=== PATIENT | female | born 1940 | race African-American/Black ===

== ENCOUNTER 2017-07-05 14:35 | Inpatient (IN) | payer OTHER ==
[~2017-07-05] VITALS: Ht 154.9 cm; Wt 78.0 kg
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
[~2017-07-05 14:35] MED LIST: CLONAZEPAM 1 MG1 M1 PO; HALDOL PO; NORCO 5-325 TA1 EACH PO; SIMVASTATIN40 MG PO; SYNTHROID150 MCG PO; TRAZODONE 150150 MG PO; ZOFRAN ODT4 MG PO
[2017-07-05 14:36] VITALS: BP 121/84
[2017-07-05 15:26] LABS: ABSOLUTE NEUTROPHILS 5.9 thou/uL (1.4-8.2); BASOPHILS 0.6 % (0.0-2.0); EOSINOPHILS 0.2 % (0.0-3.0); HEMOGLOBIN 12.1 gm/dL (12.0-15.0); LYMPHOCYTES 23.4 % (24.0-44.0); MCH 27.6 pg (26.0-34.0); MCHC 33.6 g/dL (28.0-37.0); MONOCYTES 5.3 % (1.0-8.0); PLATELET COUNT 272 thou/uL (150-400); POLYS 70.5 % (36.0-66.0); RBC 4.39 mil/uL (4.20-5.00); RDW 17.3 % (10.5-14.5); WBC 8.4 thou/uL (4.0-11.0)
[2017-07-05 15:33] LABS: CREATININE 0.9 mg/dL (0.6-1.0); POTASSIUM 3.5 mmol/L (3.5-5.1)
[2017-07-05] MEDS ORDERED: SINGULAIR 10 MG10 M1 PO (15:33)
[2017-07-05] MEDS ORDERED: CYMBALTA30 MG PO (15:33)
[2017-07-05] MEDS ORDERED: KLONOPIN0.5 MG PO (15:33)
[2017-07-05] MEDS ORDERED: SYNTHROID50 MCG PO (15:33)
[2017-07-05] MEDS ORDERED: VRAYLAR1.5 MG PO (15:35)
[2017-07-05 15:55] LABS: URINE BILIRUBIN NEGATIVE (Negative); URINE BLOOD TRACE (Negative); URINE CLARITY CLEAR; URINE COLOR YELLOW; URINE GLUCOSE-RANDOM* NEGATIVE (Negative); URINE KETONES NEGATIVE (Negative); URINE LEUKOCYTES NEGATIVE (Negative); URINE NITRITE NEGATIVE (Negative); URINE PROTEIN (DIPSTICK) NEGATIVE (Negative)
[2017-07-05 16:54] VITALS: BP 160/76
[2017-07-05 18:15] VITALS: BP 152/78
[2017-07-05 20:00] VITALS: BP 138/72
[2017-07-06 04:14] VITALS: BP 141/86
[2017-07-06 07:37] VITALS: BP 122/66
[2017-07-06 13:50] VITALS: BP 122/66
[2017-07-06 16:21] VITALS: BP 137/74
[2017-07-06 19:24] VITALS: BP 130/68
[2017-07-07 03:04] VITALS: BP 122/75
[2017-07-07 09:13] VITALS: BP 148/72
[2017-12-21] MEDS ORDERED: ZOFRAN4 MG PO (21:54)
[2017-12-21] MEDS ORDERED: COMPAZINE10 MG PO (21:54)
[2017-12-23] MEDS ORDERED: DULOXETINE HCL30 MG PO (17:39)
[2017-12-23] MEDS ORDERED: TYLENOL325 MG PO (17:39)
[2017-12-23] MEDS ORDERED: MIRALAX17 GM PO (17:39)
[2017-12-23] MEDS ORDERED: SYNTHROID50 MCG PO (17:39)
[2017-12-23] MEDS ORDERED: QUETIAPINE FUM200 MG PO (17:39)
== END 2017-07-07 14:00 | disposition home health service (06) | DRG 93 ==
LOC: ER 14:35 → EROBS 16:45 → 4S 16:45
PROVIDERS: Nurse Practitioner
DX: G92 Toxic encephalopathy (principal); G43.909 Migraine, unspecified, not intractable, without status migrainosus; F31.9 Bipolar disorder, unspecified; F20.9 Schizophrenia, unspecified
CPT/HCPCS: 10195

== ENCOUNTER 2017-08-02 11:14 | Emergency (ER) | payer OTHER ==
[~2017-08-02] VITALS: Ht 154.9 cm; Wt 79.4 kg
--- NOTE | ~2017-08-02 | EKG ---
[place] [address] [facility] [place] [address] ELECTROCARDIOGRAM REPORT Name: SHNAAE BAUM [id number] Admission: 08/02/17 Attend Phys: Discharge: 08/02/17 Date of : 42 Report #: [id number] THIS REPORT FOR: //name// [facility] ED Test Date: 2017-08-02 Test Time: 12:12:08 Pat Name: SHANAE BAUM Department: Room: Gender: F Partridge Farmer: ABRAHAN : 1940 Requested By: Suri Diaz Order Number: [id number] MD: Omi Hay Measurements Intervals [place] Rate: 53 P: 56 IN: 149 QRS: -41 QRSD: 93 T: 6 QT: 463 QTc: 435 Interpretive Statements Sinus bradycardia Abnormal R-wave progression, early transition Left ventricular hypertrophy No previous ECG available for comparison Electronically Signed On 08-02-2017 19:28:16 CDT by Omi Hay [email or web address] <ELECTRONICALLY SIGNED> By: Omi Hay MD, [facility] 08/02/17 1928 1212 1212 Omi Hay MD, FACC /EPI
[~2017-08-02 11:14] MED LIST changes: +CYMBALTA30 MG PO; +KLONOPIN0.5 MG PO; +SINGULAIR 10 MG10 M1 PO; +SYNTHROID50 MCG PO; +VRAYLAR1.5 MG PO
[2017-08-02 13:10] LABS: ABSOLUTE NEUTROPHILS 2.5 thou/uL (1.4-8.2); BASOPHILS 0.6 % (0.0-2.0); EOSINOPHILS 1.5 % (0.0-3.0); HEMATOCRIT 35.1 % (37.0-47.0); HEMOGLOBIN 11.4 gm/dL (12.0-15.0); LYMPHOCYTES 37.6 % (24.0-44.0); MCHC 32.6 g/dL (28.0-37.0); MCV 82.7 fL (80.0-100.0); MONOCYTES 6.7 % (1.0-8.0); PLATELET COUNT 249 thou/uL (150-400); POLYS 53.6 % (36.0-66.0); RBC 4.24 mil/uL (4.20-5.00); RDW 17.9 % (10.5-14.5); WBC 4.7 thou/uL (4.0-11.0)
[2017-08-02 13:21] LABS: ANION GAP 6 mmol/L (7-16); BUN 9 mg/dL (7-18); CALCIUM 9.1 mg/dL (8.5-10.1); CHLORIDE 107 mmol/L (98-107); CO2 25 mmol/L (21-32); CREATININE 0.7 mg/dL (0.6-1.0); GLUCOSE 101 mg/dL (74-106); SODIUM 138 mmol/L (136-145)
[2017-08-02 13:29] LABS: ALBUMIN 3.1 g/dL (3.4-5.0); SGOT 24 U/L (15-37); SGPT 18 U/L (30-65); TOTAL BILIRUBIN 0.5 mg/dL (<0.1-1.0); TOTAL PROTEIN 7.1 g/dL (6.4-8.2); TROPONIN-I < 0.04 ng/mL (<0.06)
[2017-08-02 14:26] LABS: URINE BILIRUBIN NEGATIVE (Negative); URINE BLOOD NEGATIVE (Negative); URINE CLARITY CLEAR; URINE COLOR YELLOW; URINE GLUCOSE-RANDOM* NEGATIVE (Negative); URINE KETONES NEGATIVE (Negative); URINE LEUKOCYTES NEGATIVE (Negative); URINE NITRITE NEGATIVE (Negative); URINE PROTEIN (DIPSTICK) NEGATIVE (Negative); URINE SPECIFIC GRAVITY 1.015 (1.005-1.035); URINE UROBILINOGEN 0.2 E.U./dl (0.2-1.0)
[2017-08-02 17:22] VITALS: BP 160/90
[2017-12-21] MEDS ORDERED: COMPAZINE10 MG PO (21:54)
[2017-12-21] MEDS ORDERED: ZOFRAN4 MG PO (21:54)
[2017-12-23] MEDS ORDERED: TYLENOL325 MG PO (17:39)
[2017-12-23] MEDS ORDERED: DULOXETINE HCL30 MG PO (17:39)
[2017-12-23] MEDS ORDERED: MIRALAX17 GM PO (17:39)
[2017-12-23] MEDS ORDERED: QUETIAPINE FUM200 MG PO (17:39)
[2017-12-23] MEDS ORDERED: SYNTHROID50 MCG PO (17:39)
== END 2017-08-02 17:22 | disposition home or self-care (01) ==
LOC: ER 11:14
PROVIDERS: Nurse Practitioner Family
DX: R53.1 Weakness (principal); F54 Psychological and behavioral factors associated with disorders or diseases classified elsewhere; G43.909 Migraine, unspecified, not intractable, without status migrainosus; F31.9 Bipolar disorder, unspecified; F20.9 Schizophrenia, unspecified

== ENCOUNTER 2018-06-17 19:38 | Inpatient (IN) | payer OTHER ==
[~2018-06-17] VITALS: Ht 154.9 cm; Wt 77.1 kg
[~2018-06-17 19:38] MED LIST changes: +COMPAZINE10 MG PO; +DULOXETINE HCL30 MG PO; +MIRALAX17 GM PO; +QUETIAPINE FUM200 MG PO; +TYLENOL325 MG PO; +ZOFRAN4 MG PO
[2018-06-17 19:51] VITALS: BP 141/75
[2018-06-17 20:35] LABS: ABSOLUTE NEUTROPHILS 5.5 thou/uL (1.4-8.2); BASOPHILS 0.6 % (0.0-2.0); EOSINOPHILS 1.2 % (0.0-3.0); HEMATOCRIT 35.6 % (37.0-47.0); HEMOGLOBIN 11.9 gm/dL (12.0-15.0); LYMPHOCYTES 26.9 % (24.0-44.0); MCHC 33.4 g/dL (28.0-37.0); MCV 83.6 fL (80.0-100.0); MONOCYTES 5.4 % (1.0-8.0); PLATELET COUNT 268 thou/uL (150-400); POLYS 65.9 % (36.0-66.0); RBC 4.26 mil/uL (4.20-5.00); RDW 15.5 % (10.5-14.5); WBC 8.3 thou/uL (4.0-11.0)
[2018-06-17 20:43] LABS: ANION GAP 7 mmol/L (7-16); BUN 13 mg/dL (7-18); CALCIUM 9.5 mg/dL (8.5-10.1); CHLORIDE 106 mmol/L (98-107); CO2 26 mmol/L (21-32); CREATININE 0.9 mg/dL (0.6-1.0); GLUCOSE 120 mg/dL (74-106); POTASSIUM 3.5 mmol/L (3.5-5.1); SODIUM 139 mmol/L (136-145)
[2018-06-17 20:49] LABS: AMP/METHAMP Negative (Negative); BARBITURATES Negative (Negative); BENZODIAZEPINES Negative (Negative); COCAINE Negative (Negative); METHADONE Negative (Negative); OPIATES Negative (Negative); PCP Negative (Negative)
[2018-06-17 20:51] LABS: ALBUMIN 3.5 g/dL (3.4-5.0); SGOT 17 U/L (15-37); SGPT 18 U/L (30-65); TOTAL BILIRUBIN 0.3 mg/dL (<0.1-1.0); TOTAL PROTEIN 7.5 g/dL (6.4-8.2); TROPONIN-I <0.06 ng/mL (<0.06)
[2018-06-17 20:54] LABS: URINE BILIRUBIN NEGATIVE (Negative); URINE BLOOD NEGATIVE (Negative); URINE CLARITY CLEAR; URINE COLOR YELLOW; URINE GLUCOSE-RANDOM* NEGATIVE (Negative); URINE KETONES NEGATIVE (Negative); URINE LEUKOCYTES-REFLEX NEGATIVE (Negative); URINE NITRITE-REFLEX NEGATIVE (Negative); URINE PROTEIN (DIPSTICK) NEGATIVE (Negative); URINE SPECIFIC GRAVITY 1.015 (1.005-1.035); URINE UROBILINOGEN 0.2 E.U./dl (0.2-1.0)
--- NOTE | 2018-06-17 21:04 | NUR ---
CONTACTED [facility]. PT HAS 2 PRESCRIPTIONS, NOT PICKED UP: LEVOTHYROXINE .075 DAILY LEVOTHYROXINE .05 DAILY THESE MEDS WERE ORDERED BY DR VAN AND DR ALESSANDRA WEBB PRESCRIPTIONS PHONED IN ON - HAVE NOT BEEN PICKED UP. HAS PRESCRIPTION FOR CLONAZEPAM 0.5 MG TID, NOT PICKED UP SINCE JAN, 2018 HAS PRESCRIPTIONS FOR VYLAR SENT IN MULTIPLE TIMES BY 2 DIFFERENT DOCTORS NEVER PICKED UP
[2018-06-17 23:20] VITALS: BP 99/82
[2018-06-17 23:24] VITALS: BP 99/82
--- NOTE | 2018-06-18 04:34 | NUR ---
PT ADMITTED TO UNIT APPROX 2330 IN STABLE CONDITION. ADMISSION AND ASSESSMENT COMPLETED, CONSENTS SIGNED. PT A&Ox4, AMBULATING WITH A WALKER/MIN ASSIST, BROUGHT A LARGE SUITCASE, LARGE PURSE, AND CLOTHES WITH HER, ASKED MALE FRIEND TO GO BACK TO HER APARTMENT AND BRING VARIOUS FOOD ITEMS AND HER PERSONAL WALKER. ASKED PT IF SHE BROUGHT ANY MEDICATIONS WITH HER, SHE STATED SHE LEFT ALL MEDS AT HOME. APPARENTLY PT DROVE HERSELF TO THE ER, HER RED DICK WAHL IS PARKED IN THE DISABLED SPOT IN THE ER PARKING LOT; SPOKE TO SECURITY ABOUT THIS, THEY STATED THE CAR WAS OKAY THERE LONG IT HAS DISABLED PLATES (IT DOES) BUT RECOMMEND HER FRIEND MOVE THE CAR TO REGULAR PARKING IF SHE WOULD BE STAYING IN HOSPITAL VERY LONG. PT'S PCP IS DR. GUIDO, SEES DR. WEBB FOR PSYCHIATRIC CONCERNS/MEDS. REPORTS BEING OUT OF THE MEDS DR. WEBB' PRESCRIBED FOR THE LAST THREE DAYS. PT REPORTS BEING UNABLE TO SLEEP FOR >70 HOURS, FEELING WEAK AND DIZZY--WORSENED BY DEVELOPING A MIGRAINE, STATES SHE HASN'T BEEN ABLE TO EAT SHE IS NAUSEATED AND THROWING UP AT HOME, DOES NOT KNOW HER LAST BM BECAUSE "I'M CONSTIPATED ALL THE TIME." PT IN NO APPARENT DISTRESS, NOT VOMITING, EATING CHIPS AND DRINKING SODA BROUGHT WITH HER TO THE FLOOR, HAS TURNED TV ON LOUDLY, ASKING HER FRIEND TO DO MULTIPLE THINGS FOR HER. SBP ON ADMIT WAS 150'S, THEN 99, AND FINALLY 130'S ON THE FLOOR. HAS CALLED APPROPRIATELY TO GET UP TO BEDSIDE COMMODE. COMPLAINS THAT THE BED AND ROOM ARE MOVING, SAYS WHEN SHE GETS DIZZY "IT'S LIKE BEING ON AN AIR POCKET." OBTAINED ORDERS FROM DR. MAGALLON FOR TYLENOL, PO ZOFRAN, AND AMBIEN. GAVE ALL THESE AROUND 0100. DR. MAGALLON AWARE PT'S REGULAR DOSE OF SEROQUEL WAS 200MG, WANTED HER TO START TONIGHT AT 50MG, WHICH WAS GIVEN BY ER. SAID HER WILL ORDER HER OTHER MEDS WHEN HE SEES HER IN THE AM. ACCORDING TO PREVIOUS ADMISSION HISTORY, PT HAS A MANAGER OF OPERATIONS THROUGH THE [facility] [employer] OFFICE AND IS A FERNANDEZ OF THE [facility]. WHEN ASKED DIRECTLY IF SHE HAD A TAXATION CONSULTANT OR KNEW IF SHE WAS RESPONSIBLE FOR HERSELF, PT STATED "I DON'T KNOW WHERE THAT INFORMATION CAME FROM, THEY ASKED ME DOWNSTAIRS, BUT I DON'T KNOW WHO THAT MICHOACANO OR TAD IS, AND I TAKE CARE OF MYSELF." RANULFOLY DENIED EVER HAVING A OVERNIGHT CASHIER, DID NOT TELL THE PT THE NAMES LISTED IN THE COMPUTER. NO OTHER CONCERNS, WILL CONTINUE TO MONITOR.
[2018-06-18 08:20] VITALS: BP 139/88
--- NOTE | 2018-06-18 08:33 | NUR ---
ASSESMENT COMPLETED. VSS. A/O. C/O "VERY BAD HEADACHE" AND DIZZINESS. PT STATING "THE ROOM IS SPINNING". WHILE WALKING- NOTED STABLE GAIT. STAND BY WHEN UP. PT RESTING IN BED AT THIS TIME. WILL CONT. TO MONITOR.
[2018-06-18 17:25] VITALS: BP 144/92
[2018-06-18 19:23] VITALS: BP 148/83
--- NOTE | 2018-06-19 04:44 | NUR ---
ASSUMED CARE @ 1915. ASSESSMENT AND VSS, @ 20:00. A&O X 4 PLEASANT AFFECT NOTED. FALL RISK EQUIRING X1 ASSIST. C/O H.A. AND DIZINESS. 21:00 MEDS PROVIDED AND TAKEN WITHOUT DIFFICULTY. DENIES HAVING BM TODAY. C/O LOWER CENTER OF ABD IS TENDER. C/O INABILITY TO FALL ASLEEP DESPITE AMBIEN HAVING BEEN GIVEN. TV NOTED TO BE ON TO POLICE DRAMA. THIS NURSE SUGGESTED A QUIET ENVIRONMENT TO AIDE SLEEP. PATIENT DISMISSED THE SUGGESTION, SAYING THAT SHE ALWAYS WATCHES TV WHEN SHE CANNOT SLEEP. HOT DECAF TEA PROVIDED AT REQUEST, AND TYLENOL FOR PAIN AND ZOFRAN FOR N/V.
[2018-06-19 05:53] VITALS: BP 150/69
--- NOTE | 2018-06-19 15:59 | NUR ---
ASSESSMENT-PT LIVES IN AN APT Alone. S/W FRANK DO PUBLIC HYGIENE COORDINATOR ADVANCED REGISTERED NURSE AND NOTIFIED OF THE ADMISSION AND GAVE CONDITION UPDATE. PT HAS BEEN USING A WALKER TO GET AROUND DUE TO PAT DIZZINESS. PT NORMALLY ABLE TO WALK ON HER OWN AND DOES HER OWN COOKING, CLEANING AND LAUNDRY. IF ANY CONSENTS ARE NEEDED PLEASE CALL FRANK DO [phone] FOR PERMISSION OR IF ANYTHING ELSE IS NEEDED FOR THIS FERNANDEZ OF THE [facility] PUBLIC ADM. OFFICES ARE CURRENTLY FLOODED AND CLOSED DUE TO FLOODING AT THE [facility].
--- NOTE | 2018-06-19 18:06 | NUR ---
PT A&OX4, AMBULATES WITH ASSIST X1, IV INTACT IN R FA. MED LIST FROM PT'S PSYCHIATRIC 'S OFFICE OBTAINED BY FAX. CYMBALTA REORDERED PER DR. GUIDO, CASSANDRARIN FOR MIGRAINES IS A NON FORMULARY MED AND PT DOES NOT HAVE MED AT HOME. TOLERATING TYLENOL FOR PAIN. PT IS CALM, PLEASANT.
--- NOTE | 2018-06-19 18:45 | NUR ---
PT HAS BEEN TRANSFERED TO [facility].
[2018-06-19 19:08] VITALS: BP 131/59
--- NOTE | 2018-06-19 19:38 | NUR ---
Pt. transferred from , room 428 to [facility], room 222. Transported in a w/c, w/ asst of 1 CONTACT PERSON.
--- NOTE | 2018-06-20 04:16 | NUR ---
Pt. remains A&Ox4. Swallows meds whole w/o difficulty. Remains cont. B&B. Needs asst x 1 for ADLs/transfrts/toileting needs. Ambulates w/ asst of staff/walker; gait steady. IV noted/intact to R hand; line flushed w/ o difficulty. SM BM, on this shift. Patient denies pain or discomfort, at this time. No s/s of acute distress noted. PO fluids encouraged. Call light/desired belongins within reach. Will contiue to monitor.
[2018-06-20 08:20] VITALS: BP 122/64
--- NOTE | 2018-06-20 12:17 | NUR ---
Following for d/c planning. Ben Minor, nurse with Public [employer] Clerk's office did onsite visit with pt today. He said there is no plan to have guardianship rescinded or appealed. Provided requested paperwork to guardian. Will remain available to assist as needed.
[2018-06-20 15:03] LABS: URINE BILIRUBIN NEGATIVE (Negative); URINE BLOOD TRACE (Negative); URINE CLARITY CLEAR; URINE COLOR YELLOW; URINE GLUCOSE-RANDOM* NEGATIVE (Negative); URINE KETONES NEGATIVE (Negative); URINE LEUKOCYTES-REFLEX NEGATIVE (Negative); URINE NITRITE-REFLEX NEGATIVE (Negative); URINE PROTEIN (DIPSTICK) NEGATIVE (Negative); URINE SPECIFIC GRAVITY 1.015 (1.005-1.035); URINE UROBILINOGEN 0.2 E.U./dl (0.2-1.0)
[2018-06-20 15:10] VITALS: BP 122/64
--- NOTE | 2018-06-20 18:38 | NUR ---
ASSUMED CARE OF PATIENT AT 0715, PATIENT ALERT AND ORIENTED X 4. PATIENT UP WITH ASSIST X 1. PATIENT C/O HEADACHE MOST OF THEDAY, WITH NO RELIEF. THIS RN NOTIFIED DR GUIDO THIS AM OF HEADACHE, RECEIVED ORDER TO CHANGE TYLENOL 650 MG FROM EVERY 6 HOURS TO EVERY 4 HOURS. PATIENT C/O FREQUENCY OF URINE WITH BURNING, NOTIFIED DR GUIDO, RECEIVED ORDER TO COLLECT UA, AND CULTRUE IF INDICATED. URINE SAMPLE RECEIVED AND TOOK TO THE LAB. PATIENT HAS RIGHT HABD IV IN PLACE. DR GUIDO STATES WILL KEEP PATIENT TONIGHT, AND DISCHARGE TOMORROW. WILL CONTINUE TO MONITOR.
--- NOTE | 2018-06-20 19:46 | NUR ---
I AGREE WITH NURSING ASSESSMENT DONE BY BHAVANA/DARYA.
[2018-06-20 19:55] VITALS: BP 156/84
--- NOTE | 2018-06-20 23:14 | NUR ---
Assumed pt care at 1900. A/OX4,with mutiple complaints on assessment;headache,dizziness even though pt is observed resting calmly in bed with no distress. in to see pt at beginning of shift requested nurse to monitor pt sleeping pattern and document no more new orders given. Pt's UA was done earlier and appears to be negative,pt hasn't complained of dysuria so far and been up to void 3 times. Pt has adequate PO intake. Tylenol 650mg administered for MARTINEZ with relief reported. Pt still up watching tv eating snacks,PRN dose of Seroquel administered at 2300 will monitor for effectiveness. Pt aslo stated she didn't transfer with her toiletries last evening,toothbrush,toothpaste and lotion given to pt.Denies any other needs/concerns at this time. Call light/personal items within reach. Will continue to monitor pt.
--- NOTE | 2018-06-21 06:49 | NUR ---
Pt slept throught the night until 0630 after second dose of seroquel at 2300 up to BSC once in between.
--- NOTE | 2018-06-21 11:48 | NUR ---
Received telephone call from intake at [facility] stating they are not able to provide start of care until Tuesday. Called [facility] liaison. Awaiting return call re: start of care.
[2018-06-21 19:02] VITALS: BP 127/73
--- NOTE | 2018-06-21 19:42 | NUR ---
ASSUMED CARE OF PATIENT AT 0715, PATIENT ALERT AND ORIENTED X 4. PATIENT UP WITH ASSIST X 1 WITH WALKER. PATIENT WAS USING BSC, DR GUIDO ORDERD TO REMOVE BSC AND HAVE PATIENT AMBULATE TO THE BATHROOM. PATIENT WORKED WITH PHYSICAL AND WALKED 150 FEET, WITH ASSIST OF WALKER. PATIENT CONTINUES TO C/O DIZZINESS AND HEADACHES, THIS RN NOTIFIED DR GUIDO, RECEIVED ORDER FOR TYLENOL 500MG 1 TABLET EVERY 4 HOURS AND GIVE WITH TRAMADOL 50 MG 1 TABLET EVERY 4 HOURS. ALSO RECEIVED ORDER FOR MECLIZINE 25 MG 1 TABLET EVERY 4 HOURS/PRN FOR DIZZINESS. PATIENT STATES NO RELIEF FROM TYLENOL/TRAMADOL AND NO RELIEF FROM MECLIZINE THIS SHIFT. DR GUIDO CHANGED DIET TO FULL LIQUIDS TO HELP WITH DIZZINESS. WILL CONTUNUE
--- NOTE | 2018-06-22 04:56 | NUR ---
Assumed pt care at 1900. Pt A/OX4,c/o headache,migraine,toothache and dizziness medicated with PRN meds as ordered with minimal relief reported;pt in no distress when assessed. Pt given the additional PRN Seroquel at 2215 and has been resting with eyes closed for the most part of the night. Pt also had a shower before bed last night with friend's help. VSS.Voiding without any difficulties. Pt ambulating to BR with SBA/RW without any difficulties. Call light/personal items within reach,friend in room for the night. Will continue to monitor pt.
[2018-06-22 08:12] VITALS: BP 121/72
--- NOTE | 2018-06-22 10:01 | NUR ---
PATIENT CARE WAS ASSUMED AT 0715.PATIENT ISW ALERT AND ORIENTED X4.PATIENT STATES HER PAIN IS USUALLY 15/10.HER PAIN IS IN HER TOOTH AND HEADACHE.WILL CONTINUE TO GET MEDICATION WHEN AVAILABLE.IV IS INTACT AND PATENT.PATIENT STILL COMPLAINS OF DIZZINESS.PT IS ABLE TO GET UP WITH STANDBY ASSIST TO BATHROOM.PATIENT WAS PLACED ON FULL LIQUID DIET TO HELP PREVENT ANY FURTHER DIZZINESS PER DOCTORS NOTE.PATIENT DOESN'T WANT THAT SHE WANTS TO EAT REGULAR FOOD.WILL CALL THE DOCTOR TO GET THAT CHANGED.PATIENT HAS FRIEND AT BEDSIDE THAT BRING OUTSIDE FOOD.CALL LIGHT, PHONE, AND PERSONAL BELONGINGS ARE WITHIN REACH.
--- NOTE | 2018-06-22 12:56 | NUR ---
DISCHARGE NOTE: MT reviewed chart and spoke with nursing and attending physician. Pt is medically stable for discharge home today. MT met with pt at bedside to discuss discharge today. Pt states she feels better today and is ready to go home "while the sun is out." Pt's friend, Sergio, will provide transportation home this afternoon. Pt will leave her car in the parking lot until this weekend. SW explained that she will milk pickup driver her new prescriptions at [facility] when she is discharged. Pt will have services through [facility]. Awaiting final discharge orders/summary at this time. MT spoke with Lashon in intake at [facility] to notify of pt's discharge. Pt is agreeable with discharge plan. Contact info for [facility] placed in pt's discharge summary. Should pt need w/c van transportation home, [facility] [employer] can be contacted. MT is available to assist as needed. [facility]: [phone] Provide pt's home address
[2018-06-22] MEDS ORDERED: SYNTHROID75 MCG PO (15:44)
[2018-06-22] MEDS ORDERED: CYMBALTA30 MG PO (15:44)
[2018-06-22] MEDS ORDERED: QUETIAPINE FUM100 MG PO (15:44)
[2018-06-22] MEDS ORDERED: AMOXICILLIN 50500 M1 PO (16:08)
--- NOTE | 2018-06-22 16:41 | NUR ---
PATIENT DISCHARGED [facility], IV WAS TAKEN OUT, PATIENT WAS GIVEN DISCHARGE PAPERS WITH EDUCATION ON MEDICATIONS, PATIENT DOESNT HAVE ANY QUESTIONS AT THIS TIME, ORIGINAL RIDES SET UP WITH FRIENDS UNABLE TO TRANSPORT AT TIME OF DISCHARGE, NURSE SET UP RIDE WITH [facility] AT [phone], RIDE TO ARRIVE IN 1 HOUR, PATIENT WILL EAT DINNER PRIOR TO LEAVING
--- NOTE | 2018-06-22 17:42 | NUR ---
TRANSPORTATION ARRIVED AT 1735 TO TAKE PATIENT HOME.FRIEND FOLLOWED PATIENT HOME TO HELP SETTLE PATIENT.
== END 2018-06-22 17:43 | disposition home health service (06) | DRG 103 ==
LOC: ER 19:38 → SICU 23:01 → 4E 23:01 → EROBS 23:01 → 4E 23:54 → SICU 06-19 19:00 → ENTRNSPT 06-22 16:18 → SICU 06-22 17:43
PROVIDERS: Internal Medicine; Student in an Organized Health Care Education/Training Program; ADMIT Internal Medicine
DX: G43.909 Migraine, unspecified, not intractable, without status migrainosus (principal); F25.9 Schizoaffective disorder, unspecified; R53.81 Other malaise; F31.9 Bipolar disorder, unspecified; I10 Essential (primary) hypertension; R62.7 Adult failure to thrive; G47.00 Insomnia, unspecified; K59.00 Constipation, unspecified; E03.9 Hypothyroidism, unspecified; J31.0 Chronic rhinitis; Z60.2 Problems related to living alone; Z91.19 Patient's noncompliance with other medical treatment and regimen; Z90.710 Acquired absence of both cervix and uterus; Z79.899 Other long term (current) drug therapy; Z68.32 Body mass index [BMI] 32.0-32.9, adult
CPT/HCPCS: 10084; 15002

== ENCOUNTER → 2019-03-13 | Outpatient (CLI) | payer OTHER ==
[~2019-03-13] MED LIST changes: +AMOXICILLIN 50500 M1 PO; +QUETIAPINE FUM100 MG PO; +SYNTHROID75 MCG PO
--- NOTE | 2019-03-21 09:45 | SLE ---
[facility] [place] [address] POLYSOMNOGRAPHY STUDY Name: SHANAE BAUM Room #: REG [facility]#: [id number] Admission: 03/13/19 Attend Phys: Antwan Palumbo MD Discharge: Date of : 42 Report #: [id number] THIS REPORT FOR: //name// CC: Antwan Kate MD DATE OF SERVICE: 03/13/2019 ATTENDING PHYSICIAN: Dr. Willi Kate. The patient is 78 years old who weighs 165 pounds with a BMI of 30. The patient's Fillmore score was 8. The patient underwent diagnostic sleep study performed at [facility]. During the night of the study, the patient spent 416 minutes in bed and slept for 116 minutes only with a very poor sleep efficiency of 27.8%. Sleep latency was 66 minutes with absent REM sleep. Overall, sleep architecture showed normal stage 1 sleep, increased stage 2 sleep, normal slow wave and absent REM sleep. During the night of study, the patient had no obstructive mixed or central apneas. The patient had 4 hypopneas. The patient's apnea-hypopnea index for the entire night was 2.6 per hour. The patient did not have REM sleep. The patient's supine AHI was 2.8 per hour. EKG monitoring revealed an average heart rate of 69 beats per minute. No sustained arrhythmias observed. No PLMs observed. Nocturnal oximetry study revealed an average oxygen saturation of 96% with a lowest of 91%. Due to low AHI, the patient did not meet the split night criteria for CPAP initiation. IMPRESSION: 1. No clinically significant sleep disordered breathing. The patient's AHI for the entire night was 2.6 per hour. 2. Poor sleep efficiency of 27%, resulting from sleep onset and sleep maintenance insomnia. 3. No clinically significant nocturnal hypoxia. 4. No clinically significant periodic limb movements. RECOMMENDATIONS: 1. The patient did not meet the split night criteria for CPAP initiation due to [facility] [address] [place] [address] POLYSOMNOGRAPHY STUDY Name: BAUTISTASHANAE Room #: [facility]#: [id number] Admission: 03/13/19 Attend Phys: Antwan Palumbo MD Discharge: Date of : 42 Report #: [id number] very low AHI. 2. The patient's sleep efficiency was poor. If the patient's insomnia is chronic, then it should be further evaluated and treated according to the etiology. 3. Weight loss is advised. 4. Avoid [employer] depressants. <ELECTRONICALLY SIGNED> By: Antwan Palumbo MD 03/21/19 0945 [id number] Antwan Palumbo MD /nt
== END ==
LOC: SLEEPLAB 03-12 10:40
DX: G47.00 Insomnia, unspecified (principal); G47.19 Other hypersomnia; R53.83 Other fatigue; E66.09 Other obesity due to excess calories; Z68.30 Body mass index [BMI] 30.0-30.9, adult

== ENCOUNTER → 2019-03-20 | Outpatient (CLI) | payer OTHER | LOC: CAT 12:46 | DX: R90.82 White matter disease, unspecified (principal); I25.10 Atherosclerotic heart disease of native coronary artery without angina pectoris; I69.398 Other sequelae of cerebral infarction ==

== ENCOUNTER 2019-03-29 23:02 | Emergency (ER) | payer OTHER ==
[~2019-03-29] VITALS: Ht 154.9 cm; Wt 75.8 kg
[2019-03-29 23:25] LABS: URINE BILIRUBIN NEGATIVE (Negative); URINE BLOOD TRACE (Negative); URINE CLARITY CLEAR; URINE COLOR YELLOW; URINE GLUCOSE-RANDOM* NEGATIVE (Negative); URINE KETONES NEGATIVE (Negative); URINE LEUKOCYTES-REFLEX NEGATIVE (Negative); URINE NITRITE-REFLEX NEGATIVE (Negative); URINE PROTEIN (DIPSTICK) NEGATIVE (Negative); URINE UROBILINOGEN 0.2 E.U./dl (0.2-1.0)
[2019-03-30 00:05] VITALS: BP 123/75
== END 2019-03-30 00:05 | disposition home or self-care (01) ==
LOC: ER 23:02
PROVIDERS: Emergency Medicine
DX: R10.2 Pelvic and perineal pain (principal); Z72.820 Sleep deprivation; I10 Essential (primary) hypertension; F31.9 Bipolar disorder, unspecified; F20.9 Schizophrenia, unspecified; G43.909 Migraine, unspecified, not intractable, without status migrainosus; Z90.710 Acquired absence of both cervix and uterus; Z86.2 Personal history of diseases of the blood and blood-forming organs and certain disorders involving the immune mechanism

== ENCOUNTER 2019-05-14 07:12 | Emergency (ER) | payer OTHER ==
[~2019-05-14] VITALS: Ht 154.9 cm; Wt 76.7 kg
[2019-05-14 11:39] VITALS: BP 144/83
== END 2019-05-14 11:40 | disposition home or self-care (01) ==
LOC: ER 07:12
DX: G43.909 Migraine, unspecified, not intractable, without status migrainosus (principal); F31.9 Bipolar disorder, unspecified; F20.9 Schizophrenia, unspecified; Z90.710 Acquired absence of both cervix and uterus; Z86.2 Personal history of diseases of the blood and blood-forming organs and certain disorders involving the immune mechanism